=== PATIENT | female | born 1935 | race Caucasian/White ===

== ENCOUNTER → 2016-07-02 | Outpatient (CLI) | payer MEDICARE, OTHER | LOC: CIMAGING 10:31 | PROVIDERS: ATTEND Surgery | DX: Z12.31 Encounter for screening mammogram for malignant neoplasm of breast (principal) | CPT/HCPCS: G0202 ==

== ENCOUNTER → 2016-07-20 | Outpatient (CLI) | payer OTHER | LOC: FIMAGING 11:17 | PROVIDERS: ATTEND Surgery | DX: Z01.818 Encounter for other preprocedural examination (principal); C50.919 Malignant neoplasm of unspecified site of unspecified female breast | CPT/HCPCS: 38790; A9520 ==

== ENCOUNTER → 2017-01-12 | Outpatient (CLI) | payer OTHER | LOC: CIMAGING 12:47 | PROVIDERS: ATTEND Surgery | DX: Z12.39 Encounter for other screening for malignant neoplasm of breast (principal); Z85.3 Personal history of malignant neoplasm of breast | CPT/HCPCS: G0206 ==

== ENCOUNTER → 2017-01-12 | Outpatient (CLI) | payer OTHER | LOC: BRMIMAGING 10:48 | PROVIDERS: ATTEND Internal Medicine Hematology & Oncology | DX: Z13.820 Encounter for screening for osteoporosis (principal); M81.0 Age-related osteoporosis without current pathological fracture; C50.412 Malignant neoplasm of upper-outer quadrant of left female breast ==

== ENCOUNTER → 2017-08-31 | Outpatient (CLI) | payer OTHER | LOC: CIMAGING 10:37 | PROVIDERS: ATTEND Surgery | DX: Z12.31 Encounter for screening mammogram for malignant neoplasm of breast (principal); Z85.3 Personal history of malignant neoplasm of breast ==

== ENCOUNTER → 2018-02-28 | Outpatient (CLI) | payer OTHER | LOC: CIMAGING 12:44 | PROVIDERS: ATTEND Surgery | DX: N64.53 Retraction of nipple (principal); N64.59 Other signs and symptoms in breast; N60.12 Diffuse cystic mastopathy of left breast; Z85.3 Personal history of malignant neoplasm of breast | CPT/HCPCS: 76641-PO ==

== ENCOUNTER → 2018-06-06 | Outpatient (CLI) | payer OTHER | LOC: CIMAGING 12:34 | PROVIDERS: ATTEND Internal Medicine Hematology & Oncology | DX: C50.412 Malignant neoplasm of upper-outer quadrant of left female breast (principal); C50.211 Malignant neoplasm of upper-inner quadrant of right female breast; Z17.1 Estrogen receptor negative status [ER-] | CPT/HCPCS: 76641-PO ==

== ENCOUNTER 2018-06-20 10:49 | Inpatient (IN) | payer OTHER ==
--- NOTE | 2018-06-20 10:30 | PDHPUP ---
History & Physical Update H&P update statement: This history and physical update is based on an assessment of the patient which was completed after admission or registration (within 24 hours), but prior to the surgery/procedure. H&P update: H&P reviewed & patient examined, no change in patient's condition since H&P completed
--- NOTE | 2018-06-20 10:31 | POSTOPPROG ---
Post Op Note Date of Operation: 06/20/18 Surgeon: oJse [employer] Advisor: Matilda Evans PA-C Anesthesiologist: Dr. Brown Anesthesia: GET(General Endotracheal) Pre-op Diagnosis: Right breast cancer Post-op Diagnosis: same Procedure: Bilateral mastectomy Inf/Abcess present in the surg proc area at time of surgery?: No EBL: Minimal Complications: no immediate Drains: Mandeep Nicholas (Right breast, right axillary, left breast) Specimen(s): left breast, right breast and axillary lymph nodes
[2018-06-20] MEDS ORDERED: LR 1,000 ML IV ONE (11:35)
[2018-06-20] MEDS ORDERED: fentaNYL 250 MCG/5 ML INJ ONE (11:54)
[2018-06-20] MEDS ORDERED: PROPOFOL/EMULSION 500 MG/50 ML BOTTLE IV ONE ×2 (11:55→13:15)
[2018-06-20] MEDS ORDERED: BUPIVACAINE 0.25% 30 ML SDV ONE (11:57)
--- NOTE | 2018-06-20 12:04 | PDANEPAE ---
ANE History of Present Illness 83 year old female with bilateral breast cancer for bilateral mastectomy. ANE Past Medical History - Cardiovascular History Hx Hypertension: No Hx Arrhythmias: No Hx Chest Pain: No Hx Coronary Artery / Peripheral Vascular Disease: No Hx CHF / Valvular Disease: No Hx Palpitations: No - Pulmonary History Hx COPD: No Hx Asthma/Reactive Airway Disease: No Hx Recent Upper Respiratory Infection: No Hx Oxygen in Use at Home: No Hx Sleep Apnea: Yes Sleep Apnea Screening Result - Last Documented: Negative - Neurologic History Hx Cerebrovascular Accident: No Hx Seizures: No Hx Dementia: No - Endocrine History Hx Diabetes: No - Renal History Hx Renal Disorders: Yes Renal History Comment: incontinent, wears pads/ briefs - Liver History Hx Hepatic Disorders: No - Neurological & Psychiatric Hx Hx Neurological and Psychiatric Disorders: No - Cancer History Hx Cancer: Yes Cancer History Comment: bilateral breast - Congenital Disorder History Hx Congenital Disorders: No - GI History Hx Gastrointestinal Disorders: No - Other Health History Other Health History: none - Chronic Pain History Chronic Pain: No - Surgical History Prior Surgeries: 1963 claudia. 1972 hysterectomy. 03/18/15 left partial mastectomy. 05/10/16 right TKA. 07/20/16 right breast lumpectomy. 10/13/17 left TKA ANE Review of Systems Review of systems is: negative Review of Systems: - Exercise capacity METS (RN): 4 METS ANE Patient History - Allergies Allergies/Adverse Reactions: No Known Allergies Allergy (Verified 06/15/18 10:49) - Home Medications Home Medications: NK [No Known Home Meds] 06/15/18 [Last Taken Unknown] - NPO status NPO Since - Liquids (Date): 06/20/18 NPO Since - Liquids (Time): 07:30 NPO Since - Solids (Date): 06/19/18 - Smoking Hx Smoking Status: Never smoked - Family Anes Hx Family Hx Anesthesia Complications: none ANE Labs/Vital Signs - Vital Signs Blood Pressure: 132/71 Heart Rate: 80 Respiratory Rate: 15 O2 Sat (%): 93 Height: 160.02 cm Weight: 94.347 kg ANE Physical Exam - Airway Neck exam: FROM Mallampati Score: Class 2 Mouth exam: normal dental/mouth exam - Pulmonary Pulmonary: no respiratory distress - Cardiovascular Cardiovascular: regular rate and rhythym - ASA Status ASA Status: II ANE Anesthesia Plan Anesthesia Plan: GA w LMA
[2018-06-20] MEDS ORDERED: oxyCODONE IR 5 MG TAB PO PRN (12:29)
[2018-06-20] MEDS ORDERED: PROMETHAZINE HCL 25 MG/ML INJ IVP PRN (12:29)
[2018-06-20] MEDS ORDERED: ONDANSETRON 4 MG/2 ML VIAL IVP PRN ×2 (12:29→14:58)
[2018-06-20] MEDS ORDERED: NALOXONE HCL 0.4 MG/ML INJ IVP PRN (12:29)
[2018-06-20] MEDS ORDERED: ACETAMINOPHEN 500 MG TAB PO PRN (12:29)
[2018-06-20] MEDS ORDERED: fentaNYL 100 MCG/2 ML INJ IVP PRN (12:29)
[2018-06-20] MEDS ORDERED: LABETALOL HCL 5 MG/ML 20 ML MDV IVP PRN (12:29)
[2018-06-20] MEDS ORDERED: BUPIVACAINE/EPI 0.25% 10 ML SDV ONE (14:00)
--- NOTE | 2018-06-20 14:43 | POSTANESTH ---
Post Anesthetic Evaluation Respiratory Status: Normal, Stable Level of Consciousness/Mental Status: Mildly Sleepy, Arousable Pain Control: Adequate, Prn Tx Ordered Nausea/Vomiting Control: Adequate, Prn Tx Ordered Complications Possibly Related to Anesthesia: None Noted
[2018-06-20] MEDS ORDERED: HYDROCODONE/APAP 5/325 TAB PO PRN (14:58)
[2018-06-20] MEDS ORDERED: TEMAZEPAM 15 MG CAP PO PRN (14:58)
[2018-06-20] MEDS ORDERED: HYDROmorphONE/DILAUDID 1 MG/ML INJ IVP PRN (14:58)
[2018-06-20] MEDS ORDERED: ACETAMINOPHEN 325 MG TAB PO PRN (14:58)
[2018-06-20] MEDS ORDERED: KETOROLAC 15 MG/1 ML SDV IVP SCH (18:00)
--- NOTE | 2018-06-20 21:09 | PDMN ---
Medical Necessity Medical necessity: Pt meets inpt criteria per MD order and [facility] [place] [facility], Mastectomy , Complete. 83 y/o w/R breast cancer admitted for bilat mastectomy and post-op care. Ext stay anticipated due to comorbidities of adv age and blindness.
--- NOTE | 2018-06-21 06:12 | GOP ---
[f rep st] OPERATIVE REPORT DATE OF OPERATION: 06/20/2018 SURGEON: Jose Pickens MD SHAPE BRICK MOLDER: Matilda Evans PA-C ANESTHESIA: General. ANESTHESIOLOGIST: Dr. Brown. PREOPERATIVE DIAGNOSIS: Recurrent right breast carcinoma. POSTOPERATIVE DIAGNOSIS: Recurrent right breast carcinoma. PROCEDURE PERFORMED: Right modified radical mastectomy, left simple mastectomy. FINDINGS: See below. INDICATIONS: 83-year-old female with a history of bilateral breast carcinoma. 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 She is undergoing right mastectomy with prophylactic left mastectomy at this time. Risks and benefits were explained including bleeding, infection, tumor recurrence, need for additional postoperative adjuvant therapy, skin flap necrosis, as well as others. All questions were answered. She desires to proceed. assistant professor of marine biology is standard and necessary and customary for the safe performance of this procedure. DESCRIPTION OF PROCEDURE: Bilateral breasts were elliptically incised incorporating the nipple-areolar complexes, as well as both prior lumpectomy incisions. Using electrocautery, skin flaps were created to the level of the clavicle, sternum, inframammary fold, as well as latissimus dorsi muscle. The right breast was peeled from medial to lateral. The entire pectoralis major musculature was included within the specimens as there appeared to be gross tumor adherence to the pectorals major muscle. This also included portions of the pectoral minor, as well. Specimen was taken high up into the axilla. There was extremely dense scarring, as well as multiple firm palpable high axillary nodes. It was opted to proceed with a completion axillary dissection given the patient's history and discussion regarding postoperative therapies. The thoracodorsal, as well as long thoracic nerves, were identified and preserved. The intercostal brachial nerve was unable to be identified given the dense matting of scar tissue. The tissues were skeletonized beneath the axillary vein and the specimen removed intact, sent for permanent specimen processing. The contralateral breast was dissected away. The dissection was taken up toward the clavicle, sternum, inframammary fold, as well as latissimus dorsi muscle. The breast was peeled from medial to lateral, incorporating the pectoralis major fascia. Satisfactory hemostasis was assured throughout bilateral breast envelopes. No appreciable lateral breast masses were palpable. 0.25% Marcaine, was infiltrated along both pectoralis planes, as well as serratus anterior plane. The right breast was closed over two 10 flat Mandeep-Nicholas drains, the left being closed over a solitary drain with absorbable suture followed by Dermabond. The patient was extubated in the operating room and taken to Recovery uneventfully. /[id number]/MODL MTDD
--- NOTE | 2018-06-21 08:30 | SOAPPROG ---
SOAP Progress Note Assessment/Plan: Assessment/Plan: Doing well s/p right modified mastectomy and left simple mastectomy. Procedure details explained with patient. Pain currently well managed. PT/OT to evaluate and treat. Strip PHIL drains TID. She will benefit from additional care today given her advanced macular degeneration. Encouraged ambulation. May shower today. Will plan for discharge to home tomorrow with home nursing care. Patient seen and evaluated with Dr. Pickens. 06/21/18 08:30 Subjective: S/p right modified radical mastectomy and left simple mastectomy POD #1. No overnight concerns. Pain well managed. No wound concerns. Objective: Vital Signs Temp Pulse Resp BP Pulse Ox 36.6 C 66 18 122/52 H 98 06/21/18 08:17 06/21/18 08:17 06/21/18 08:17 06/21/18 08:17 06/21/18 08:17 06/20/18 06/21/18 06/22/18 05:59 05:59 05:59 Intake Total 1660 Output Total 1120 Balance 540 General: A&O x3, appears comfortable, afebrile Breast: Bilateral mastectomy incisions clean and healing nicely, flaps pink, nontender, PHIL drains (Right breast and axillary, left breast) serosanguineous Extremities: Good bilateral upper extremity ROM, no arm edema ICD10 Worksheet Patient Problems: Problems Problem Status Onset Breast cancer Acute - ICD10 Problem Qualifiers (1) Breast cancer
--- NOTE | 2018-06-21 10:44 | ASMTCMCOM ---
CM Note CM Note Notes: Chart reviewed and met with Pt. She is an 83 year old with history of Breast Ca who came in for Rt modified and lt simple mastectomy. Pt lives alone in [place] with her niece (Mere [phone]) living a block away. PT evaluated & recommends Home health care. OT to Eval. CM gave a list of Home Health care agency and Pt would like the input from her Niece.CM to follow Pt's needs. Plan: Home with HHC when medically cleared. Date Signed: 06/21/2018 10:43 AM Electronically Signed By:Pita Donovan
[2018-06-22 07:50] VITALS: BP 129/55
--- NOTE | 2018-06-22 08:26 | PDIAF ---
- Diagnosis Diagnosis: Right breast cancer Code Status: Full Code - Medication Management Discharge Medications: electronically signed and located in the Home Medication List. - Orders Services needed: Home Care, Registered Nurse (PHIL drain management ), Physical Therapy Home Care Face to Face: I certify that this patient was under my care and that I had the required [id number] encounter meeting the encounter requirements on the discharge day. My findings support the fact that the patient is homebound as defined in Home Care Face to Face Continued: CMS Chapter 7 Medicare Benefits Manual 30.1.1 , The condition of the patient is such that there exists a normal inability to leave home and consequently, leaving home would require a considerable and taxing effort. Diet Recommendation: no restrictions on diet Diet Texture: Regular Texture Diet Additional Instructions: May shower. Regular diet. Activity as tolerated. Order for home nursing care ( [facility]). Follow up in office in 2 weeks. Call with fevers, chills, wound concerns, pain not managed with medication, or other questions. - Follow Up Care Current Providers and Referrals: Noris Colon [Primary Care Provider] - Jose Pickens MD [Medical Doctor] - follow up in 1 week (Call for appointment)
--- NOTE | 2018-06-22 09:09 | ASMTCMCOM ---
CM Note CM Note Notes: Met with Pt, then called Mere ([facility]) who will be available to help with showers & arrange family to stay with Pt. Mere asked that I use [facility]. I have contacted Leila handy ([facility]) who will arrange HHC with RN & PT. PT recommends HHC. CM available for needs until discharge. Plan: Discharge home with [facility] Date Signed: 06/22/2018 09:08 AM Electronically Signed By:Pita Donovan
--- NOTE | 2018-06-22 09:12 | ASMTLACE ---
OLY Length of stay for Answers: 2 days current admission Acuity / Level of Answers: Yes Care: Did the patient have an inpatient admission? Comorbidities - select Answers: Other Notes: Breast Ca all that apply # of Emergency department Answers: 0 visits in the last 6 months Score: 6 Date Signed: 06/22/2018 09:12 AM Electronically Signed By:Pita Donovan
--- NOTE | 2018-06-22 11:26 | GDS ---
[f rep st] DISCHARGE SUMMARY 83-year-old female who underwent right modified radical mastectomy and left simple mastectomy on June 20, 2017 for known right breast cancer. She has a significant past medical history of bilateral breast cancer. She had an uneventful postoperative course. Her pain was well managed with Tylenol. She will be discharged to home today. She has advanced macular degeneration, thus will require home nursing care and PT. She does not take any home medications, but may continue to take Tylenol as needed for pain. Wound care discussed with the patient including frequent drain stripping. She is to follow up in the office in 1 week, pathology will be reviewed at that time. She may resume regular activity as tolerated. She was advised to call for fevers, chills, wound concerns, pain not controlled with medication, or any other questions. /[id number]/MODL MTDD
== END 2018-06-22 12:45 | disposition home health service (06) | DRG 583 ==
LOC: F3N 10:49 → F1N 15:44
PROVIDERS: ADMIT Surgery; ATTEND Surgery
PROC: 0HTV0ZZ Resection of Bilateral Breast, Open Approach (ICD-10-PCS; principal; 2018-06-20 12:15)
DX: C50.911 Malignant neoplasm of unspecified site of right female breast (principal); H35.30 Unspecified macular degeneration; R32 Unspecified urinary incontinence; Z96.653 Presence of artificial knee joint, bilateral; Z23 Encounter for immunization
CPT/HCPCS: 97116-GP; 97161-GP; 97166-GO; 97530-GP; 97535-GO; G0008; J2704; J3010